=== PATIENT | male | born 2000 | race Caucasian/White ===

== ENCOUNTER 2024-05-04 06:34 | Emergency (ER) | payer BC, SELFPAY ==
[2024-05-04 06:36] VITALS: BP 172/87; PULSE 72; RESP 15; TEMP 36.3; O2SAT 97
--- NOTE | 2024-05-04 06:48 | PC.NURSE ---
patient reports wearing glasses and not being able to see without them. RN had patient put glasses on and patient was able to see 20/25 out the Right eye only. Patient reports not being able to see out the left eye at all. Patient is ambulatory and a/o xs4
--- NOTE | 2024-05-04 06:55 | PC.NURSE ---
This patient reports placing eye contacts approximately 4 hours ago. Reports red swollen eye since. Patient wears glasses and states he is not able to see out of the left arm at all.
--- NOTE | 2024-05-04 10:52 | ED_ITS ---
HPI - Eye Problem General Chief complaint: Eye Problems Stated complaint: L eye red/swelling Time Seen by Provider: 05/04/24 08:55 History of Present Illness HPI Narrative: 23-year-old male presenting to the emergency department chief complaint of left eye pain and irritation. He states he has a slightly red I last week was prescribed moxifloxacin drops by his urgent care. He had no pain or tearing at that time. He completed his 7 day course of antibiotic eyedrops and states that he went uses contact lenses today and felt any irritation when he but the min. Knows that contacted or bothering him in his left eye and he began having severe pain and tearing. He removed the contact lens and still feels a foreign body sensation that eye. Denies any visual acuity changes, blurriness in his vision, headaches or nauseousness. States that his eye has been progressively getting more red and tearing since this happened last night. He ran out of his antibiotic eyedrops. Denies any other ocular trauma or potential irritations. Denies any ocular exposure to chemicals or soaps. No trauma, head injuries or foreign bodies that could be potentially left according to the patient. Patient was otherwise in his normal state of health. Related Data Allergies Allergy/AdvReac Type Severity Reaction Status Date / Time No Known Allergies Allergy Verified 05/04/24 06:35 Review of Systems Review of Systems: As reviewed above in HPI Exam Narrative: GENERAL: [Well-appearing, well-nourished, and in no acute distress.] HEAD: [Normocephalic, atraumatic.] EYES: [PERRLA and EOMI.] the left eye is injected but has limbus bearing, full range of motion, no cellulitis or erythema externally. No pain with extraocular movements. Fluorescein lamp reveals semi circular abrasions resembling his previous contact lens. No ulcerations, hypopyon, hyphema or pupillary defect or Divya sign. ENT: Nares clear, no rhinorrhea or epistaxis. Mucous membranes moist. NECK: Supple. CHEST: [Clear to auscultation. No respiratory distress.] HEART: [Regular rate and rhythm]. No murmur heard. [Normal peripheral pulses.] ABDOMEN: [Soft, nondistended], [nontender], [No rigidity or guarding] EXTREMITIES: Normal range of motion. [No edema.] SKIN: Warm, dry, no rash. NEURO: [No focal deficits]. Alert and oriented [x3.] PSYCH: [Normal mood and affect.] Course Vital Signs Vital signs: Vital Signs Temperature 36.3 C L 05/04/24 06:36 Pulse Rate 72 05/04/24 06:36 Respiratory Rate 15 05/04/24 06:36 Blood Pressure 172/87 H 05/04/24 06:36 Pulse Oximetry 97 05/04/24 06:36 Oxygen Delivery Room Air 05/04/24 06:36 Temperature 36.3 C L 05/04/24 06:36 Pulse Rate 72 05/04/24 06:36 Respiratory Rate 15 05/04/24 06:36 Blood Pressure 172/87 H 05/04/24 06:36 Pulse Oximetry 97 05/04/24 06:36 Oxygen Delivery Room Air 05/04/24 06:36 MDM - Eye Problem MDM Narrative Medical decision making narrative: 23-year-old male presents to the emergency room with left eye pain and irritation. States that he was recently on antibiotic eyedrops including moxifloxacin for a painless right eye about 10 days prior. Complete his antibiotic course and states that he tried contact lenses that were new from a box today and noticed eye pain and irritation shortly thereafter. Denies any other trauma or injury. No fever, headache, nauseous, vision change. He otherwise appears well but does have a tearful left eye that is injected with limbic sparing. Fluorescein dye reveals no perforation or ulcerations. There was some by circular abrasions that are evident which could be from his contact lens irritating the epithelial cells of the cornea. currently no concerning findings suspicious for ophthalmitis or globe injury. pain is alleviated im mediately after tetracaine eyedrops. At this time given his reassuring examination findings I believe he can be safely treated with a another course of antibiotic eyedrops especially to cover Pseudomonas given his contact lens usage. Encouraged him to follow up shortly with an publisher assistant or his primary care provider for repeat examination after treatment with antibiotic eyedrops. Patient was given instructions on pain control with Tylenol and ibuprofen in addition to the eyedrops as directed. He was given strict return precautions including developing any worsening vision, fever, purulent drainage, worsening pain, any other concerning features and he was instructed to return to the emergency department at that time. Patient verbalized understanding of these instructions and safely discharged at this time. Differential Diagnosis Differential diagnosis: Likely corneal abrasion, conjunctivitis, acute iritis, hyphema, periorbital cellulitis, subconjunctival hemorrhage, glaucoma, corneal ulcer and ruptured globe Medical Records Attestation: I reviewed the patient's medical records. Discharge Plan Discharge Clinical Impression: Corneal abrasion Patient Disposition: Home, Self-Care Condition: Stable Instructions: Antibiotic Form, Corneal Abrasion (DC) Additional Instructions: If he develops any fever, worsening pain, worsening vision, headaches, swelling or any other concerning symptoms please return to the emergency department. Continue taking the antibiotic eyedrops and [id number] Tylenol and ibuprofen for pain control. Follow-up with your primary care provider and you can contact and look up Ophthalmology over at [facility] for an outpatient clinic visit. Prescriptions: New moxifloxacin 0.5 % drops 1 drp EACH EYE TID 10 Days Qty: 3 0RF Follow-up/Referrals: Maldonado Rico MD [Physician] - (establish care) PHYSICIAN,HYDRAULIC BILLET MAKER [Primary Care Provider] - Time of Disposition: 10:58
== END 2024-05-04 11:11 | disposition home or self-care (01) ==
PROVIDERS: Emergency Provider Student in an Organized Health Care Education/Training Program
DX: S05.02XA Injury of conjunctiva and corneal abrasion without foreign body, left eye, initial encounter (principal); X58.XXXA Exposure to other specified factors, initial encounter
CPT/HCPCS: 99283

== ENCOUNTER 2025-02-14 17:23 | Emergency (ER) | payer OTHER, SELFPAY ==
--- NOTE | ~2025-02-14 | US_ITS ---
EXAMINATION: US scrotum doppler, 02/14/2025 17:50 CDT HISTORY: testicular pain Comparison: None Technique: Bueno-scale and color Doppler images were obtained of the testes with spectral analysis to document arterial and venous flow. Findings: Right Testicle:Right testicle 3.9 x 2.3 x 2.7 cm, normal parenchyma, normal flow. Right Epidiymis:Unremarkable. Normal flow. Left Testicle: Left testicle 3.8 x 2.4 x 3.2 cm, normal parenchyma, abnormal flow. Left Epidiymis: Unremarkable. Normal flow. Hydrocele: Small simple appearing left hydrocele. . Varicocele: None Scrotum: Incidental inguinal hernia noted on the right side containing bowel.. No skin thickening. Impression: 1. Negative for torsion. Right inguinal hernia. CT recommended Reviewed, dictated and finalized at location A. Impression: 1. Negative for torsion. Right inguinal hernia. CT recommended
--- NOTE | ~2025-02-14 | CT_ITS ---
CT abdomen pelvis w con Clinical History: inguinal hernia, rec CT on US . Comparison: None Technique: Axial images lung bases to symphysis pubis 100 mL Omnipaque 350 Coronal, sagittal reformats CT images acquired with automatic exposure control for dose reduction DLP: 1781 mGy-cm Findings: Lung bases: Clear. Visualized heart and pericardium: Unremarkable. Liver: Enlarged. Steatosis. Gallbladder: Unremarkable. Spleen: Unremarkable. Pancreas: Unremarkable. Adrenal glands: Unremarkable. Kidneys: Right kidney- No hydronephrosis. No renal stones. Left kidney- No hydronephrosis. No renal stones. Distal esophagus/stomach: Unremarkable. Small bowel loops: Normal caliber and wall thickness. Colon: Normal caliber and wall thickness. Normal RLQ appendix. Nodes: No enlarged nodes. Peritoneum: No ascites. No free air. Urinary bladder: Unremarkable. Prostate: Unremarkable. Bones: No acute bony abnormality. Soft tissues: Tiny inguinal hernias containing fat. Aorta: No aneurysm or dissection. IVC: Unremarkable. Main portal vein/SMV/splenic vein: Patent. IMPRESSION: 1. No acute findings. Reviewed, dictated and finalized at location R. IMPRESSION: 1. No acute findings.
--- OUTSIDE RECORDS SUMMARY | 2025-02-14 16:45 | XMS_ITS | Encounter Summary ---
Author Organization [facility] Healthcare Address [address] [place] [address] Care Team Providers Care Cap Inspector Name Role Phone Unknown, Notinfile Primary Care Provider Unavail able Reason for Visit * Reason Comments Testicle Pain X 3 days, noticed it the first time when he had a bowel movement, and they are sore all the time now, but get worse with bowel movements or erections Constipation Encounter Details Date Type Department Care Team (Late st Contact Info) Description 02/14/2025 4:45 PM CDT Office Visit [facility] Convenient Care at [address] [address] Erika Tan NP [address] [place] [id number] Pain in both testicles (Primary Dx); Other constipation; Elevated blood pressure reading in office without diagnosis of hypertension Social History Tobacco Use Types Packs/Day Years Used Date Smoking Tobacco: Never Assessed Sex and Gender Information Value Date Recorded Sex Assigned at Not on file Legal Sex Male 4:34 PM CDT Gender Identity Not on file Sexual Orientation Not on file documented as of this encounter Last Filed Vital Signs Vital Sign Reading Time Taken Comments Blood Pressure 154/103 02/14/2025 4:49 PM CDT Pulse 105 02/14/2025 4:49 PM CDT Temperature 36.4 C (97.5 F) 02/14/2025 4:49 PM CDT Respiratory Rate 18 02/14/2025 4:49 PM CDT Oxygen Saturation 98% 02/14/2025 4:49 PM CDT Inhaled Oxygen Concentration - - Weight 125.3 kg (276 lb 3.2 oz) 02/14/2025 4:49 PM CDT Height 190.5 cm (6' 3) 02/14/2025 4:49 PM CDT Body Mass Index 34.52 02/14/2025 4:49 PM CDT documented in this encounter Progress Notes * Erika Tan, SAP TREASURY CONSULTANT - 02/14/2025 4:45 PM CDT Images from the original note were not included. Subjective/Objective Patient ID: Bora Sosa is a 24 y.o. male. This patient has verbally consented to recording this visit in order to utilize AI technology in generating this note. Chief Complaint Testicle Pain (X 3 days, noticed it the first time when he had a bowel movement, and they are sore all the time now, but get worse with bowel movements or erections ) and Constipation History of Present Illness Bora Sosa is a 24 year old male who presents with constipation and testicular pain. He has been experiencing constipation, though the onset is unclear. Bowel movements have become harder, and he attributes this to his medication regimen. He had a bowel movement about an hour and a half ago, which started normal but ended with a watery, diarrhea-like consistency. Typically, he has a bowel movement once a day or once every two days. He is experiencing testicular pain that began two to three days ago, occurring during and after bowel movements. The pain is currently mild, rated as 3 out of 10, but has been as severe as 6 to 7 outof 10. He describes the testicles as tender and notes that the sacrum shrinks and shrivels up, especially at the onset of the pain. No history of testicular issues, surgeries, or concerns about STDs.He is confident that there have been no exposures to STDs. Review of Systems All other systems reviewed and are negative. Physical Exam Physical Exam Vitals reviewed. Constitutional: General: He is not in acute distress. Appearance: Normal appearance. He is not ill-appearing. HENT: Head: Normocephalic. Mouth/Throat: Lips: [place]. Cardiovascular: Rate and Rhythm: Normal rate. Pulmonary: Effort: Pulmonary effort is normal. Breath sounds: Normal breath sounds. Genitourinary: Comments: Pt deferred exam Skin: General: Skin is warm. Neurological: Mental Status: He is alert and oriented to person, place, and time. Psychiatric: Mood and Affect: Mood normal. Vitals: 02/14/25 1649 BP: (!) 154/103 Pulse: 105 Resp: 18 Temp: 36.4 ??C (97.5 ??F) SpO2: 98% Weight: 125.3 kg (276 lb 3.2 oz) Height: 190.5 cm (6' 3) No results found. No past medical history on file. Current Outpatient Medications: atomoxetine (STRATTERA) 100 mg capsule, Take 1 capsule (100 mg total) by mouth daily, Disp: , Rfl: buPROPion XL (WELLBUTRIN XL) 150 mg 24 hr tablet, Take 1 tablet (150 mg total) by mouth every morning, Disp: , Rfl: No Known Allergies Social History Tobacco Use Smoking status: None Smokeless tobacco: None Substance and Sexual Activity Drug use: None Sexual activity: None Alcohol Use: Not on file History reviewed. No pertinent surgical history. Assessment/Plan 1. Other constipation 2. Pain in both testicles (Primary) 3. Elevated blood pressure reading in office without diagnosis of hypertension Results No results found for this or any previous visit (from the past 4 hours). Assessment & Plan BL testicular pain Pain for 2-3 days. Differential includes torsion, epididymitis, or nerve compression. - Refer to ER for testicular ultrasound to assess for torsion, abscess, or other anatomical issues.[facility] does not have ultrasound capability, once patient learned this he declined exam andstates he will go to the ER. Education --Pt going to ER for ultrasound of his testicles. Driving self. Discussed elevated BP in clinic today. Encouraged to check and record BP at home or at local pharmacy and notify PCP of results. Discussed risks associated with HTN including kidney injury, stroke, and heart disease. Discussed calling 911 for immediate transport to ED for evaluation if patient develops concerning symptoms including chest pain, headache, dizziness, confusion, weakness, or numbness/tingling to extremities. Disposition Treatment plan including expectations, follow up, and return precautions discussed with patient/parent, verbalizes understanding. Medication dosage, use, and potential adverse reactions discussed with patient/parent. Advised to follow up with PCP if symptoms do not resolve as expected or sooner if condition worsens. Signs/symptoms warranting ER evaluation reviewed. Patient and/or guardian was given an opportunity to ask questions, questions answered. Erika Tan NP This office note has been partially dictated using [employer] software, and as a result portions of the record may have been created with this software. Occasional wrong-word or '[id number]' substitutions may have occurred due to the inherent limitations of voice recognition software. Read the chartcarefully and recognize, using context, where substitutions have occurred. documented in this encounter Plan of Treatment Not on file documented as of this encounter Visit Diagnoses Diagnosis Pain in both testicles- Primary Other constipation Elevated blood pressure reading in office without diagnosis of hypertension documented in this encounter Historical Medications * This list may reflect changes made after this encounter. buPROPion XL (WELLBUTRIN XL) 150 mg 24 hr tablet Take 1 tablet (150 mg total) by mouth every morning atomoxetine (STRATTERA) 100 mg capsule Take 1 capsule (100 mg total) by mouth daily 01/28/2025 added in this encounter Care Teams Cap Inspector Relationship Specialty Start Date End Date Unknown, Notinfile PCP - General 02/14/25 documented as of this encounter
--- OUTSIDE RECORDS SUMMARY | 2025-02-14 17:25 | XMS_ITS | Clinical Summary ---
Author Organization [facility] Address [facility] [place] [address] Care Team Providers Care Public Health Inspector Name Role Phone Shaye Lock MD Primary Care Provider [phone] Allergies No known active allergies Medications No known medications Social History Tobacco Use Types Packs/Day Years Used Date Smoking Tobacco: Never Assessed Sex and Gender Information Value Date Recorded Sex Assigned at Not on file Legal Sex Male 9:41 PM RESEARCH ANIMAL ATTENDANT Gender Identity Not on file Sexual Orientation Not on file Last Filed Vital Signs Vital Sign Reading Time Taken Comments Blood Pressure 154/76 05/25/2022 2:00 PM RESEARCH ANIMAL ATTENDANT Pulse 96 05/25/2022 2:00 PM RESEARCH ANIMAL ATTENDANT Temperature 36.6 C (97.8 F) 05/25/2022 10:49 AM RESEARCH ANIMAL ATTENDANT Respiratory Rate 18 05/25/2022 2:00 PM RESEARCH ANIMAL ATTENDANT Oxygen Saturation 100% 05/25/2022 11:31 AM RESEARCH ANIMAL ATTENDANT Inhaled Oxygen Concentration - - Weight 127 kg (280 lb) 05/25/2022 10:49 AM RESEARCH ANIMAL ATTENDANT Height 190.5 cm (6' 3) 05/25/2022 10:49 AM RESEARCH ANIMAL ATTENDANT Body Mass Index 35 05/25/2022 10:49 AM RESEARCH ANIMAL ATTENDANT Plan of Treatment Health Maintenance Due Date Last Done Comments Annual Physical 2004 DTaP, Tdap and Td Vaccines (6 - Tdap) 2012 12/05/2006, 11/12/2002, 01/15/2002, Additional history exists HPV Vaccines (1 - Male 3-dose series) 2016 Meningococcal B Vaccine (1 of 2 - Standard) 2017 Hepatitis C 2019 Hepatitis B Vaccines (1 of 3 - 19+ 3-dose series) 2020 COVID-19 Vaccine (1 - season) 2025 Meningococcal Vaccine Aged Out 10/18/2015 No obi kassy eligible based on patient's age to complete this topic Pneumococcal Vaccine: Pediatrics (0 to 5 Years) and At-Risk Patients (6 to 49 Years) Aged Out No longer eligible based on patient's age to complete this topic RSV Immunizations Under 20 Months Aged Out No longer eligible based on patient's age to complete this topic Insurance Care Teams Public Health Inspector Relationship Specialty Start Date End Date Shaye Lock MD [address] [place] [address] [id number] PCP - General PEDIATRICS 09/28/20
--- OUTSIDE RECORDS SUMMARY | 2025-02-14 17:25 | XMS_ITS | Encounter Summary ---
Author Organization [facility] Address [address] [place] [address] Care Team Providers Care Experimental Psychologist Name Role Phone Shaye Lock MD Primary Care Provider [phone] Encounter Details Date Type Department Care Team (Late st Contact Info) Description 11/02/[address] [facility] [address] [place] [address] , Generic Conversion, Social History Tobacco Use Types Packs/Day Years Used Date Smoking Tobacco: Never Assessed Sex and Gender Information Value Date Recorded Sex Assigned at Not on file Legal Sex Male 9:41 PM HORSE RACE STARTER Gender Identity Not on file Sexual Orientation Not on file documented as of this encounter Plan of Treatment Not on file documented as of this encounter Visit Diagnoses Not on filedocumented in this encounter Additional Health Concerns Infection Onset Date Last Indicated Resolved Time COVID-19 Rule Out 07/02/2020 07/02/2020 07/02/2020 2:18 PM HORSE RACE STARTER COVID-19 Rule Out 05/25/2022 05/25/2022 05/25/2022 10:54 AM HORSE RACE STARTER documented as of this encounter Care Teams Experimental Psychologist Relationship Specialty Start Date End Date Shaye Lock MD [address] [place] [address] PCP - General PEDIATRICS 09/28/20 documented as of this encounter
--- OUTSIDE RECORDS SUMMARY | 2025-02-14 17:25 | XMS_ITS | Clinical Summary ---
Author Organization [facility] Address [address] [place] [id number] Care Team Providers Care Paralegal Assistant Name Role Phone Unavailable Primary Care Provider Unavailabl e Social History Tobacco Use Types Packs/Day Years Used Date Smoking Tobacco: Never Assessed Sex and Gender Information Value Date Recorded Sex Assigned at Not on file Legal Sex Male 1:02 PM CDT Gender Identity Not on file Sexual Orientation Not on file Plan of Treatment Health Maintenance Due Date Last Done Comments Hepatitis C Virus (HCV) Screening 2001 Human Papillomavirus (HPV) Immunization (1 - Male 3-dose series) 2016 Meningococcal B Immunization (1 of 2 - Standard) 2017 SARS-COV-2 Immunization (1 - season) 2024 Influenza Immunization (#1) 2025 Respiratory Syncytial Virus (RSV) Immunization (Adult) (1 - 1-dose 75+ series) 2076 Hepatitis B Immunization Completed 003, 2001, 2001 DTaP/Tdap/Td Immunization Discontinued 2012, 12/05/2006, 11/12/2002, Additional history exists TdaP Immunization Completed 09/02/2012 Meningococcal Immunization (ACWY) Completed 12/16/2018, 10/18/2015 Pneumococcal Immunization Combined Aged Out No longer eligible based on patient's age to complete this topic Rotavirus Immunization Aged Out No lo nger eligible based on patient's age to complete this topic
--- OUTSIDE RECORDS SUMMARY | 2025-02-14 17:25 | XMS_ITS | Clinical Summary ---
Author Organization [address] [address] Care Team Providers Care Logging Truck Driver Name Role Phone Unknown, Notinfile Primary Care Provider Unavail able Allergies No known active allergies Medications atomoxetine (STRATTERA) 100 mg capsule Take 1 capsule (100 mg total) by mouth daily 01/28/2025 Active buPROPion XL (WELLBUTRIN XL) 150 mg 24 hr tablet Take 1 tablet (150 mg total) by mouth every morning Active Active Problems No known active problems Encounters Date Type Department Care Team Description 02/14/2025 4:45 PM CDT Office Visit [facility] Convenient Care at [address] [address] Erika Tan NP Pain in both testicles (Primary Dx); Other constipation; Elevated blood pressure reading in office without diagnosis of hypertension from Last 3 Months Social History Tobacco Use Types Packs/Day Years Used Date Smoking Tobacco: Never Assessed Sex and Gender Information Value Date Recorded Sex Assigned at Not on file Legal Sex Male 4:34 PM CDT Gender Identity Not on file Sexual Orientation Not on file Obstetrics History Last Filed Vital Signs Vital Sign Reading [...] Mass Index 34.52 02/14/2025 4:49 PM CDT Plan of Treatment Health Maintenance Due Date Last Done Comments Depression Screening 2001 Hepatitis C Screening 2001 DTaP/Tdap/Td Vaccine (1 - Tdap) 2012 Varicella Vaccines (1 of 2 - 13+ 2-dose series) 2014 HPV Vaccines (1 - Male 3-dos e series) 2016 Meningococcal B Vaccine (1 o f 2 - Standard) 2017 Hepatitis B Screening 2019 Regular Well Visit/Exam 18-64 2019 Influenza Vaccine (#1) 2025 Pneumococcal vaccine <65 Aged Out No longer eligible based on patient's age to complete this topic Insurance [address] [address] HMO Care Teams Logging Truck Driver Relationship Specialty Start Date End Date Unknown, Notinfile PCP - General 02/14/25
[2025-02-14 17:46] VITALS: BP 150/90; PULSE 90; RESP 16; TEMP 37; O2SAT 100
[2025-02-14 19:41] LABS: Hematocrit 47.7 % (42.0-52.0); Hemoglobin 15.8 g/dL (14.0-18.0); Immature Granulocyte Percent A 0.2 % (0-0.5); Lymphocytes Absolute Auto 3.71 K/mm3 (0.9-3.2); Mean Corpuscular HGB Conc 33.1 g/dl (32-36); Mean Corpuscular Hemoglobin 28.6 pg (26-34); Mean Corpuscular Volume 86.4 fl (80-100); Nucleated Red Blood Cells Absolute Auto 0.000 K/mm3 (0.0-0.012); Nucleated Red Blood Cells Perc 0.0 % (0.0-0.2); Platelet Count Result 320 k/mm3 (150-375); Red Blood Count 5.52 M/mm3 (4.6-6.20); White Blood Count 10.0 K/mm3 (4.5-10.0)
[2025-02-14 19:58] LABS: Alanine Aminotransferase 56 U/L (6-50); Albumin Level 4.9 g/dL (3.5-5.1); Alkaline Phosphatase 65 U/L (38-126); Anion Gap 14 mmol/L (4-12); Aspartate Amino Transferase 39 U/L (17-59); Bilirubin,Total 0.7 mg/dL (0.2-1.3); Blood Urea Nitrogen 9 mg/dL (9-20); Calcium 9.6 mg/dL (8.4-10.2); Carbon Dioxide 25 mmol/L (22-30); Chloride 100 mmol/L (98-107); Estimated CRCL calculation 157 ml/min; Estimated Glomerular Filt Rate > 60; Glucose 86 mg/dL (65-110); Potassium 3.8 mmol/L (3.4-5.0); Sodium 139 mmol/L (137-145); Total Protein 8.5 g/dL (6.3-8.2)
--- NOTE | 2025-02-14 20:56 | PC.NURSE ---
Called CT, stated he is the next patient.
--- NOTE | 2025-02-14 23:34 | ED.MALEGU ---
HPI - Male Genitourinary General Chief complaint: Urogenital-Male Stated complaint: pain in testicles Time Seen by Provider: 02/14/25 18:55 History of Present Illness HPI Narrative: Patient has had some pain in his testicles on and off now, can sometimes be triggered when he is bearing down when he is constipated, or sometimes with erections. Related Data Allergies Allergy/AdvReac Type Severity Reaction Status Date / Time No Known Allergies Allergy Verified 02/14/25 21:20 Review of Systems Review of Systems: All systems reviewed & are unremarkable except as noted in HPI and below Exam Narrative: EXAMINATION OF ORGAN SYSTEMS/BODY AREAS: Constitutional: Vital signs per nursing GENERAL:[No acute distress, non-toxic appearing.] HEAD: Normal with no signs of head trauma. EYES: EOMI, conjunctiva normal ENT: Hearing grossly intact LUNGS: Nonlabored breathing. HEART: [Regular rate and rhythm] ABD: [Soft], [nontender to palpation] : no significant tenderness bilateral scrotum EXT: Normal range of motion SKIN: [No rashes or lesions.] NEURO: [Alert and oriented x 3. No gross focal sensory or strength deficits.] PSYCH: Normal affect Course Vital Signs Vital signs: Vital Signs Temperature 98.6 F 02/14/25 17:46 Pulse Rate 90 02/14/25 17:46 Respiratory Rate 16 02/14/25 17:46 Blood Pressure 150/90 H 02/14/25 17:46 Pulse Oximetry 100 02/14/25 17:46 Oxygen Delivery Room Air 02/14/25 17:46 Temperature 98.6 F 02/14/25 17:46 Pulse Rate 90 02/14/25 17:46 Respiratory Rate 16 02/14/25 17:46 Blood Pressure 150/90 H 02/14/25 17:46 Pulse Oximetry 100 02/14/25 17:46 Oxygen Delivery Room Air 02/14/25 17:46 MDM - Male Genitourinary MDM Narrative Medical decision making narrative: Patient presenting here with scrotal pain, worse after he beared down or with erections. Not currently having symptoms. Scrotum soft nontender. Ultrasound showing inguinal hernia with recommendation for CT, this shows bilateral inguinal hernia that does not contain bowel Labs normal, discussed with patient return precautions and case of any incarcerated or strangulated hernia, follow-up to General surgery for elective repair if desired. Patient at time discharge in no distress Lab Data 02/14/25 19:35 02/14/25 19:35 Labs: Lab Results 02/14/25 Range/Units 19:35 WBC 10.0 (4.5-10.0) K/mm3 RBC 5.52 (4.6-6.20) M/mm3 Hgb 15.8 (14.0-18.0) g/dL Hct 47.7 (42.0-52.0) % MCV 86.4 (80-100) fl MCH 28.6 (26-34) pg MCHC 33.1 (32-36) g/dl RDW 12.5 (11.5-14.5) % Plt Count 320 (150-375) k/mm3 MPV 9.8 (7.4-10.4) fl Immature Gran % (Auto) 0.2 (0-0.5) % Neut % (Auto) 53.6 (45.5-73.1) % Lymph % (Auto) 37.0 (18.3-44.2) % Story % (Auto) 7.8 (2.6-8.5) % Eos % (Auto) 0.8 (0-4.4) % Baso % (Auto) 0.6 (0.2-1.2) % Lymph # (Auto) 3.71 H (0.9-3.2) K/mm3 Story # (Auto) 0.8 H (0.1-0.6) K/mm3 Eos # (Auto) 0.1 (0-0.3) K/mm3 Baso # (Auto) 0.1 (0.0-0.1) K/mm3 Abs Immat Gran (auto) 0.02 (0.00-0.031) K/mm3 Absolute Neuts (auto) 5.4 (1.3-6.7) K/mm3 Absolute Nucleated RBC 0.000 (0.0-0.012) K/mm3 Nucleated RBC % 0.0 (0.0-0.2) % Sodium 139 (137-145) mmol/L Potassium 3.8 (3.4-5.0) mmol/L Chloride 100 (98-107) mmol/L Carbon Dioxide 25 (22-30) mmol/L Anion Gap 14 H (4-12) mmol/L BUN 9 (9-20) mg/dL Creatinine 0.92 (0.7-1.3) mg/dL Estim Creat Clear Calc 157 ml/min Estimated GFR > 60 (59 - ) Glucose 86 (65-110) mg/dL Calcium 9.6 (8.4-10.2) mg/dL Total Bilirubin 0.7 (0.2-1.3) mg/dL AST 39 (17-59) U/L ALT 56 H (6-50) U/L Alkaline Phosphatase 65 (38-126) U/L Total Protein 8.5 H (6.3-8.2) g/dL Albumin 4.9 (3.5-5.1) g/dL Discharge Plan Discharge Clinical Impression: Bilateral inguinal hernia Patient Disposition: Home Condition: Stable Instructions: Inguinal Hernia (ED) Additional Instructions: You can follow-up with the general surgeon. If you have severe pain, nausea vomiting, or if the hernia does not go back in, you can return to the ER. Patient Language: Uzbek Prescriptions: No Action moxifloxacin 0.5 % drops 1 drp EACH EYE TID 10 Days Qty: 3 0RF Follow-up/Referrals: Jerrado Lindsay MD [Physician, General Surgery] - 2 Days PHYSICIAN,TECHNICAL BUSINESS SYSTEMS ANALYST [Primary Care Provider, Internal Medicine]
== END 2025-02-14 22:59 | disposition home or self-care (01) ==
PROVIDERS: Emergency Provider Emergency Medicine
DX: K40.20 Bilateral inguinal hernia, without obstruction or gangrene, not specified as recurrent (principal)
CPT/HCPCS: 36415; 74177; 76870; 80053; 85025; 93976; 99284; Q9967